=== PATIENT | female | born 1990 ===

== ENCOUNTER → 2020-11-20 | Outpatient (CLI) | payer OTHER ==
[2020-11-20 22:29] LABS: Basophils # (A) 0.06 X 10*3/uL (0.00-0.10); Basophils % (A) 0.8 %; Eosinophils # (A) 0.39 X 10*3/uL (0.04-0.35); Eosinophils % (A) 5.5 %; HCT 44.1 % (37.2-46.3); HGB 14.5 g/dL (12.0-15.0); Lymphocytes % (A) 39.4 %; MCH 30.4 pg (27.0-32.0); MCHC 32.9 g/dL (32.0-37.0); MCV 92.5 fL (80.0-97.0); Mean Platelet Volume 11.6 fL (9.5-12.2); Monocytes % (A) 5.6 %; Neutrophils # (A) 3.44 X 10*3/uL (1.80-7.70); Neutrophils % (A) 48.4 %; Platelet Count 279 X 10*3/uL (140-440); RBC 4.77 X 10*6/uL (4.10-5.20); WBC 7.11 X 10*3/uL (4.50-10.00)
[2020-11-21 13:41] LABS: African American GFR (CKD) 116.3 (60.0-200.0); Albumin 4.6 g/dL (3.80-4.90); Albumin/Globulin Ratio 1.7 (1.60-3.17); Anion Gap 12.9 mmol/L (4.00-12.00); BUN/Creat Ratio 22.5 Ratio (12.00-20.00); Calcium 9.9 mg/dL (8.7-10.3); Carbon Dioxide 22.1 mmol/L (21.6-31.8); Globulin 2.7 g/dL (1.6-3.3); Non-African American GFR(CKD) 100.3 (60.0-200.0); Potassium 4.8 mmol/L (3.5-5.5); Total Bilirubin 0.9 mg/dL (0.3-1.2); Total Protein 7.3 g/dL (6.2-8.2)
[2020-11-21 13:48] LABS: Prolactin 3.6 ng/mL (2.8-29.2)
[2020-11-21 13:49] LABS: Luteinizing Hormone 3.6 mIU/mL; T4, Free (Free Thyroxine) 1.2 ng/dL (0.80-1.80)
[2020-11-21 13:50] LABS: Follicle Stimulating Hormone 6.6 mIU/mL
== END | disposition home or self-care (01) ==
LOC: LABWHC1 10:41
PROVIDERS: ATTEND Family Medicine
DX: F41.9 Anxiety disorder, unspecified (principal); F32.9 Major depressive disorder, single episode, unspecified; R23.2 Flushing
CPT/HCPCS: 36415; 80053; 83001; 83002; 84146; 84439; 84443; 84481; 85025